=== PATIENT | female | born 1965 | race Caucasian/White ===

== ENCOUNTER 2020-06-18 09:42 | Day surgery (SDC) | payer BC ==
[~2020-06-18 09:42] MED LIST: Lactated Ringers 1,000 ML IV SCH
[2020-06-18] MEDS ORDERED: fentaNYL 100 MCG/2 ML SDV ONE (10:06)
[2020-06-18] MEDS ORDERED: Propofol 200 MG/20 ML SDV ONE ×2 (10:06→11:43)
--- NOTE | 2020-06-19 11:14 | OR ---
DATE OF SURGERY: 06/18/2020. REFERRING PROVIDER: Ana Phillip PA-C PRE-OPERATIVE DIAGNOSES: 1. History of colon polyps. Last colonoscopy was 3 years ago. 2. History of hemorrhoids. POST-OPERATIVE DIAGNOSES: 1. Total of 4 polyps removed. a. 4 mm polyp at 20 cm, removed using cold forceps. b. 6 mm polyp and 2 mm polyp at 15 cm. Larger polyp removed with hot snare and smaller one using cold forceps. c. 2 mm rectal polyp, removed using cold forceps. 2. Mild hemorrhoids. 3. Normal-appearing distal ileum. 4. Tortuous colon. PROCEDURE: Colonoscopy with polypectomy x4 (1 hot snare and 3 cold forceps). SURGEON: Bakari Hassan M.D. ANESTHESIA: Monitored anesthesia care. BOWEL PREP: Good. Linh, who goes by Key, is a 55-year-old female who was brought to the endoscopy suite after discussing risks and benefits of the procedure. Informed consent was obtained for conscious sedation and colonoscopy with or without biopsy and/or polypectomy. We also discussed possibility of missed lesions. Pre-procedure exam was unremarkable. IV, oxygen, and monitors were placed. The patient was placed in the left lateral decubitus position. Sedation was administered and a digital rectal exam was performed and unremarkable. Colonoscope was passed into the rectum and slowly advanced all the way to the cecum. Cecum was viewed and photographed. Ileocecal valve was intubated and distal ileum was normal in appearance. The colonoscope was slowly withdrawn and the mucosa was closed observed in a direct circumferential manner. The ascending colon was unremarkable. The transverse colon was unremarkable. The descending colon was unremarkable. The sigmoid colon revealed 4 mm polyp at 20 cm, removed with cold forceps. There was a 6 mm polyp at 15 cm, removed with hot snare. Another 2 mm polyp at 15 cm, removed with cold forceps. Within the rectum, there was 2 mm polyp, removed with cold forceps. Retroflexion was performed and rectal mucosa revealed some mild hemorrhoids. Scope was removed. The patient tolerated the procedure well. The patient was monitored until that baseline status. Discharge instructions were reviewed and the patient was discharged in good condition. COMPLICATIONS: None. TOTAL TIME: 33 minutes. ESTIMATED BLOOD LOSS: About 1 mL. RECOMMENDATIONS/FOLLOW-UP: We will await results of path report to determine ideal followup interval. I would like to kindly thank Ana Phillip for this referral. DMB: 06/18/2020 14:03:21 MODL: 06/18/2020 15:10:01 /[id number]
== END 2020-06-18 13:03 | disposition home or self-care (01) ==
LOC: VM.SDS 09:42
PROVIDERS: ATTEND Family Medicine
DX: K63.5 Polyp of colon (principal); K62.1 Rectal polyp; K64.9 Unspecified hemorrhoids; K63.89 Other specified diseases of intestine; E78.5 Hyperlipidemia, unspecified; E89.0 Postprocedural hypothyroidism; F17.210 Nicotine dependence, cigarettes, uncomplicated; Z98.890 Other specified postprocedural states; Z90.89 Acquired absence of other organs; Z79.890 Hormone replacement therapy; Z88.5 Allergy status to narcotic agent; Z01.812 Encounter for preprocedural laboratory examination; Z20.828 Contact with and (suspected) exposure to other viral communicable diseases
CPT/HCPCS: 00811; 45380; 45385; 87635; J2704; J3010; J7120; U0002